=== PATIENT | female | born 1950 | race African-American/Black ===

== ENCOUNTER 2020-08-19 20:16 | Emergency (ER) | payer OTHER ==
[2020-08-19 22:37] LABS: HEMOGLOBIN 12.8 gm/dl (12.3-15.3); RED BLOOD COUNT 4.24 M/UL (4.00-5.10)
[2020-08-19 23:05] LABS: BUN/CREATININE RATIO 14 (0-10)
[2020-08-20] MEDS ORDERED: AZITHROMYCIN250 MG PO (04:42)
[2020-08-20] MEDS ORDERED: DECADRON6 MG PO (04:42)
[2020-08-20] MEDS ORDERED: AEROCHAMBER1 EA XX (04:45)
[2020-08-20] MEDS ORDERED: VENTOLIN HFA 66.7 GM INH (04:45)
== END 2020-08-20 05:01 | disposition home or self-care (01) ==
LOC: ER1 20:16
PROVIDERS: Family Medicine
DX: Z23 Encounter for immunization (principal); U07.1 COVID-19; E11.9 Type 2 diabetes mellitus without complications; E87.6 Hypokalemia; I10 Essential (primary) hypertension; Z79.84 Long term (current) use of oral hypoglycemic drugs; Z88.0 Allergy status to penicillin; Z88.2 Allergy status to sulfonamides
CPT/HCPCS: 36600; 71045; 80053; 81001; 82009; 82550; 82553; 82803; 83605; 83690; 83735; 83874; 83880; 84484; 85025; 85610; 93005; 96374; 96375; 99284; J1100; J1885; J2405; M0239

== ENCOUNTER → 2020-08-24 | Outpatient (CLI) | payer BC ==
[~2020-08-24] MED LIST: AEROCHAMBER1 EA XX; AZITHROMYCIN250 MG PO; DECADRON6 MG PO; PROVENTIL HFA6.7 GM INH; VENTOLIN HFA 66.7 GM INH
== END ==
LOC: KOH-I 12:11
DX: R05 Cough (principal)
CPT/HCPCS: 71046

== ENCOUNTER 2020-08-29 14:49 | Emergency (ER) | payer BC ==
[~2020-08-29 14:49] MED LIST changes: -PROVENTIL HFA6.7 GM INH
[2020-08-29 20:58] LABS: HEMOGLOBIN 11.3 gm/dl (12.3-15.3); RED BLOOD COUNT 3.76 M/UL (4.00-5.10); WHITE BLOOD COUNT 9.1 K/UL (4.5-11.0)
== END 2020-08-29 22:19 | disposition home or self-care (01) ==
LOC: ER1 14:49
PROVIDERS: Emergency Medicine
DX: U07.1 COVID-19 (principal); E11.9 Type 2 diabetes mellitus without complications; Z88.0 Allergy status to penicillin; Z88.2 Allergy status to sulfonamides
CPT/HCPCS: 36600; 71045; 80053; 82803; 85025; 96374; 96375; 99284; J1885; J2405

== ENCOUNTER 2020-09-13 16:04 | Emergency (ER) | payer BC ==
[2020-09-13 17:55] LABS: HEMOGLOBIN 13.5 gm/dl (12.3-15.3); RED BLOOD COUNT 4.37 M/UL (4.00-5.10); WHITE BLOOD COUNT 8.4 K/UL (4.5-11.0)
[2020-09-13 18:19] LABS: BUN/CREATININE RATIO 25 (0-10)
[2020-09-13] MEDS ORDERED: PROVENTIL HFA6.7 GM INH (20:27)
== END 2020-09-13 21:30 | disposition home or self-care (01) ==
LOC: ER1 16:04
PROVIDERS: Physician Assistant
DX: E11.65 Type 2 diabetes mellitus with hyperglycemia (principal); N17.9 Acute kidney failure, unspecified; E86.0 Dehydration; I10 Essential (primary) hypertension; Z90.710 Acquired absence of both cervix and uterus; Z88.0 Allergy status to penicillin; Z88.2 Allergy status to sulfonamides; Z88.1 Allergy status to other antibiotic agents
CPT/HCPCS: 71045; 80053; 81001; 82550; 82553; 82962; 83615; 83874; 84484; 85025; 85379; 86140; 87086; 93005; 99285

== ENCOUNTER → 2020-10-11 | Outpatient (CLI) | payer BC ==
[~2020-10-11] MED LIST changes: +PROVENTIL HFA6.7 GM INH
== END ==
LOC: KOH-I 15:54
DX: M54.5 Low back pain (principal); M51.36 Other intervertebral disc degeneration, lumbar region; M48.061 Spinal stenosis, lumbar region without neurogenic claudication; M43.17 Spondylolisthesis, lumbosacral region
CPT/HCPCS: 72110

== ENCOUNTER → 2020-10-12 | Outpatient (CLI) | payer BC | LOC: LAB 13:15 | PROVIDERS: Internal Medicine Nephrology | DX: N18.30 Chronic kidney disease, stage 3 unspecified (principal) | CPT/HCPCS: 36415; 80053; 82570; 84156 ==

== ENCOUNTER → 2020-12-15 | Outpatient (CLI) | payer BC, MEDICARE ==
[~2020-12-15] MED LIST changes: +ASPIRIN EC81 MG PO; +ATROVENT-HFA12.9 GM INH; +CARBAMAZEPINE200 M1 PO; +FARXIGA5 MG PO; +FERROUS GLUCON324 M2 PO; +HYDROCHLOROTHIA25 MG PO; +K-DUR TAB 10 M10 MEQ PO; +LASIX20 MG PO; +LASIX40 MG PO; +LOPRESSOR 25 MG25 MG PO; +LOSARTAN POTASS50 MG PO; +NEURONTIN400 MG PO; +PERCOCET 7.5-31 EACH PO; +POLYETHYLENE GL17 GM PO; +PRAVASTATIN SOD10 MG PO; +PROAIR DIGIHAL90 MCG INH; +RANEXA500 MG PO; +SUMATRIPTAN SUC50 MG PO; +THERAGRAN M TAB1 EA PO; +TRESIBA FL100 UNIT/1 SQ
== END ==
LOC: HEART 5 08:00
DX: R07.9 Chest pain, unspecified (principal)
CPT/HCPCS: 78452; A9502; J2785

== ENCOUNTER 2021-01-29 16:17 | Inpatient (IN) | payer BC, MEDICARE, MEDICAID ==
[~2021-01-29] VITALS: Ht 170.2 cm; Wt 89.0 kg
[~2021-01-29 16:17] MED LIST changes: -ASPIRIN EC81 MG PO; -ATROVENT-HFA12.9 GM INH; -CARBAMAZEPINE200 M1 PO; -FARXIGA5 MG PO; -FERROUS GLUCON324 M2 PO; -HYDROCHLOROTHIA25 MG PO; -K-DUR TAB 10 M10 MEQ PO; -LASIX20 MG PO; -LASIX40 MG PO; -LOPRESSOR 25 MG25 MG PO; -LOSARTAN POTASS50 MG PO; -NEURONTIN400 MG PO; -PERCOCET 7.5-31 EACH PO; -POLYETHYLENE GL17 GM PO; -PRAVASTATIN SOD10 MG PO; -PROAIR DIGIHAL90 MCG INH; -RANEXA500 MG PO; -SUMATRIPTAN SUC50 MG PO; -THERAGRAN M TAB1 EA PO; -TRESIBA FL100 UNIT/1 SQ
[2021-01-29 17:02] LABS: HEMOGLOBIN 12.7 gm/dl (12.3-15.3); RED BLOOD COUNT 4.14 M/UL (4.00-5.10); WHITE BLOOD COUNT 7.7 K/UL (4.5-11.0)
[2021-01-30] MEDS ORDERED: CARBAMAZEPINE200 M1 PO
[2021-01-30] MEDS ORDERED: K-DUR TAB 10 M10 MEQ PO (00:01)
[2021-01-30] MEDS ORDERED: NEURONTIN400 MG PO (00:01)
[2021-01-30] MEDS ORDERED: PRAVASTATIN SOD10 MG PO (00:01)
[2021-01-30] MEDS ORDERED: LOSARTAN POTASS50 MG PO (00:01)
[2021-01-30] MEDS ORDERED: LASIX20 MG PO (00:02)
[2021-01-30] MEDS ORDERED: LASIX40 MG PO (00:02)
[2021-01-30] MEDS ORDERED: FARXIGA5 MG PO (00:03)
[2021-01-30] MEDS ORDERED: ATROVENT-HFA12.9 GM INH (00:05)
[2021-01-30] MEDS ORDERED: SUMATRIPTAN SUC50 MG PO (00:05)
[2021-01-30] MEDS ORDERED: PROAIR DIGIHAL90 MCG INH (00:07)
[2021-01-30] MEDS ORDERED: TRESIBA FL100 UNIT/1 SQ (00:07)
[2021-01-30] MEDS ORDERED: HYDROCHLOROTHIA25 MG PO (00:07)
[2021-01-30 02:48] LABS: HEMOGLOBIN 11.6 gm/dl (12.3-15.3); RED BLOOD COUNT 3.82 M/UL (4.00-5.10); WHITE BLOOD COUNT 8.5 K/UL (4.5-11.0)
--- NOTE | 2021-01-30 13:32 | NUR ---
ENTERING ROOM FOR TO TAKE PATIENT FOR A TILT TABLE PROCEDURE. PATIENT STATES THAT SHE HAS PAIN IN THE RIGHT FOOT AND IS UNABLE TO BEAR WEIGHT AT THIS TIME FOR A TILT TABLE TEST. NOTIFIED. DR. BONILLA AND DOMONIQUE DALY, NEW ORDERS MADE PER CHART.
[2021-01-31 04:04] LABS: HEMOGLOBIN 10.4 gm/dl (12.3-15.3); RED BLOOD COUNT 3.46 M/UL (4.00-5.10); WHITE BLOOD COUNT 7.3 K/UL (4.5-11.0)
[2021-02-01 10:48] LABS: HEMOGLOBIN 9.9 gm/dl (12.3-15.3); RED BLOOD COUNT 3.29 M/UL (4.00-5.10); WHITE BLOOD COUNT 7.3 K/UL (4.5-11.0)
[2021-02-02 11:35] LABS: RED BLOOD COUNT 3.3 M/UL (4.00-5.10); WHITE BLOOD COUNT 7.2 K/UL (4.5-11.0)
[2021-02-03 03:43] LABS: HEMOGLOBIN 8.9 gm/dl (12.3-15.3); RED BLOOD COUNT 2.98 M/UL (4.00-5.10); WHITE BLOOD COUNT 8.1 K/UL (4.5-11.0)
[2021-02-04 09:48] LABS: HEMOGLOBIN 9.6 gm/dl (12.3-15.3); RED BLOOD COUNT 3.17 M/UL (4.00-5.10); WHITE BLOOD COUNT 8.7 K/UL (4.5-11.0)
[2021-02-05 09:48] LABS: HEMOGLOBIN 9.1 gm/dl (12.3-15.3); RED BLOOD COUNT 3.02 M/UL (4.00-5.10); WHITE BLOOD COUNT 7.2 K/UL (4.5-11.0)
[2021-02-06 05:52] LABS: RED BLOOD COUNT 2.99 M/UL (4.00-5.10); WHITE BLOOD COUNT 8.2 K/UL (4.5-11.0)
[2021-02-07 03:20] LABS: HEMOGLOBIN 9.1 gm/dl (12.3-15.3); RED BLOOD COUNT 3.08 M/UL (4.00-5.10); WHITE BLOOD COUNT 7.8 K/UL (4.5-11.0)
[2021-02-07] MEDS ORDERED: THERAGRAN M TAB1 EA PO (14:31)
[2021-02-07] MEDS ORDERED: ASPIRIN EC81 MG PO (14:31)
[2021-02-07] MEDS ORDERED: LOPRESSOR 25 MG25 MG PO (14:31)
[2021-02-07] MEDS ORDERED: PERCOCET 7.5-31 EACH PO (14:31)
[2021-02-07] MEDS ORDERED: POLYETHYLENE GL17 GM PO (14:31)
[2021-02-07] MEDS ORDERED: RANEXA500 MG PO (14:31)
[2021-02-07] MEDS ORDERED: FERROUS GLUCON324 M2 PO (14:57)
--- NOTE | 2021-02-07 15:26 | NUR ---
Report called to [facility] at this time.
--- NOTE | 2021-02-07 21:59 | NUR ---
PT WAS DISCHARGED AT 1920 AND TAKEN TO THE CAR BY WHEELCHAIR. THE PT'S FAMILY MEMBER CARRIED THE BEDSIDE COMMODE THAT PT BROUGHT TO TAKE HOME. LATER THAT EVENING THE PATIENT CALLED BACK AND SAID THAT THE BSC ONLY HAD 3 LEGS. I EXPLAINED THAT ALTHOUGH I DIDN'T COUNT THE LEGS, I DID SEE THE BSC SITTING AT THE END OF HER BED, SITTING UPRIGHT (I'M ASSUMING WITH 4 LEGS). SHE ASK THAT WE LOOK FOR THE LEG. I SEARCHED THE ROOM, THAT HADN'T BEEN CLEANED YET AND NO LEG WAS FOUND. I ALSO [facility]. SECURITY CAME BACK AND LET ME KNOW THEY HAD LOOKED AND DIDN'T SEE THE LEG TO THE BSC. I CALLED THE PATIENT AND LET HER KNOW.
== END 2021-02-07 19:20 | disposition home health service (06) | DRG 683 ==
LOC: ER1 16:17 → PROG CARE 18:10 → M/S 18:10 → CDU 18:10 → PROG CARE 01-30 12:14 → M/S 02-01 04:33
PROVIDERS: Family Medicine; Internal Medicine; ADMIT Internal Medicine
PROC: 2W3QX1Z Immobilization of Right Lower Leg using Splint (ICD-10-PCS; principal; 2021-01-29)
PROC: 0SSFXZZ Reposition Right Ankle Joint, External Approach (ICD-10-PCS; 2021-01-29)
PROC: B24BZZ4 Ultrasonography of Heart with Aorta, Transesophageal (ICD-10-PCS; 2021-01-30)
DX: N17.9 Acute kidney failure, unspecified (principal); J98.11 Atelectasis; E87.1 Hypo-osmolality and hyponatremia; Z20.822 Contact with and (suspected) exposure to COVID-19; N18.30 Chronic kidney disease, stage 3 unspecified; I12.9 Hypertensive chronic kidney disease with stage 1 through stage 4 chronic kidney disease, or unspecified chronic kidney disease; E11.22 Type 2 diabetes mellitus with diabetic chronic kidney disease; E87.6 Hypokalemia; E86.0 Dehydration; W18.39XA Other fall on same level, initial encounter; S82.851A Displaced trimalleolar fracture of right lower leg, initial encounter for closed fracture; J44.9 Chronic obstructive pulmonary disease, unspecified; G50.0 Trigeminal neuralgia; G44.89 Other headache syndrome; E78.5 Hyperlipidemia, unspecified; I34.0 Nonrheumatic mitral (valve) insufficiency; Y92.009 Unspecified place in unspecified non-institutional (private) residence as the place of occurrence of the external cause; Z79.01 Long term (current) use of anticoagulants; Z79.82 Long term (current) use of aspirin; Z88.1 Allergy status to other antibiotic agents; Z88.2 Allergy status to sulfonamides; Z90.710 Acquired absence of both cervix and uterus; Z98.42 Cataract extraction status, left eye; Z98.41 Cataract extraction status, right eye; Z90.10 Acquired absence of unspecified breast and nipple; Z82.49 Family history of ischemic heart disease and other diseases of the circulatory system
CPT/HCPCS: ECHO; 36415; 70450; 71045; 72170; 73590; 73600; 73610; 73620; 73700; 80048; 80053; 80061; 81001; 82009; 82550; 82553; 82570; 82962; 83036; 83540; 83550; 83605; 83735; 83874; 83880; 84100; 84156; 84439; 84443; 84484; 85025; 85027; 85610; 86140; 87040; 87086; 93005; 93306; 93880; 94640; 94760; 96374; 96375; 97110-GP-CQ; 97116; 97161; 97166; 97530; 97530-GP-CQ; 97535; 99285; G0378; J1650; J1956; J2270; J2405; J2704; J7030; U0002

== ENCOUNTER → 2021-02-14 | Outpatient (CLI) | payer BC, MEDICARE ==
[~2021-02-14] MED LIST changes: +ASPIRIN EC81 MG PO; +ATROVENT-HFA12.9 GM INH; +CARBAMAZEPINE200 M1 PO; +FARXIGA5 MG PO; +FERROUS GLUCON324 M2 PO; +HYDROCHLOROTHIA25 MG PO; +K-DUR TAB 10 M10 MEQ PO; +LASIX20 MG PO; +LASIX40 MG PO; +LOPRESSOR 25 MG25 MG PO; +LOSARTAN POTASS50 MG PO; +NEURONTIN400 MG PO; +PERCOCET 7.5-31 EACH PO; +POLYETHYLENE GL17 GM PO; +PRAVASTATIN SOD10 MG PO; +PROAIR DIGIHAL90 MCG INH; +RANEXA500 MG PO; +SUMATRIPTAN SUC50 MG PO; +THERAGRAN M TAB1 EA PO; +TRESIBA FL100 UNIT/1 SQ
[2021-02-14 11:33] LABS: HEMOGLOBIN 10.9 gm/dl (12.3-15.3); RED BLOOD COUNT 3.63 M/UL (4.00-5.10); WHITE BLOOD COUNT 7.5 K/UL (4.5-11.0)
== END ==
LOC: OPSV2 09:00
PROVIDERS: Anesthesiology
DX: Z01.818 Encounter for other preprocedural examination (principal); S82.891A Other fracture of right lower leg, initial encounter for closed fracture; R94.31 Abnormal electrocardiogram [ECG] [EKG]
CPT/HCPCS: 36415; 80048; 85025; 93005

== ENCOUNTER → 2021-02-17 | Day surgery (SDC) | payer BC, MEDICARE | END | disposition home or self-care (01) | LOC: OR 05:42 | DX: S82.841A Displaced bimalleolar fracture of right lower leg, initial encounter for closed fracture (principal); S93.431A Sprain of tibiofibular ligament of right ankle, initial encounter; I10 Essential (primary) hypertension; E78.5 Hyperlipidemia, unspecified; J44.9 Chronic obstructive pulmonary disease, unspecified; E11.9 Type 2 diabetes mellitus without complications; Z87.891 Personal history of nicotine dependence; Z88.0 Allergy status to penicillin; Z88.2 Allergy status to sulfonamides; Z79.82 Long term (current) use of aspirin; Z79.4 Long term (current) use of insulin; Z20.822 Contact with and (suspected) exposure to COVID-19; W19.XXXA Unspecified fall, initial encounter | CPT/HCPCS: 73610; 76000; 82962; C1713; J1100; J1170; J2250; J2405; J2550; J2704; J2795; J3010; J7030; J7120 ==

== ENCOUNTER 2021-03-04 17:30 | Emergency (ER) | payer BC, MEDICARE ==
[2021-03-04] MEDS ORDERED: LODINE CAP 300300 MG PO (21:20)
== END 2021-03-04 21:35 | disposition home or self-care (01) ==
LOC: ER1 17:30
DX: S09.90XA Unspecified injury of head, initial encounter (principal); S33.5XXA Sprain of ligaments of lumbar spine, initial encounter; S80.02XA Contusion of left knee, initial encounter; S70.02XA Contusion of left hip, initial encounter; E11.9 Type 2 diabetes mellitus without complications; I25.2 Old myocardial infarction; I11.9 Hypertensive heart disease without heart failure; W01.0XXA Fall on same level from slipping, tripping and stumbling without subsequent striking against object, initial encounter; Y92.009 Unspecified place in unspecified non-institutional (private) residence as the place of occurrence of the external cause
CPT/HCPCS: 70450; 72131; 73502; 73564; 99284

== ENCOUNTER 2021-04-12 07:01 | Outpatient (CLI) | payer BC, MEDICARE ==
[~2021-04-12] VITALS: Ht 170.2 cm; Wt 74.8 kg
[~2021-04-12 07:01] MED LIST changes: +LODINE CAP 300300 MG PO
[2021-04-12 07:58] LABS: HEMOGLOBIN 11.8 gm/dl (12.3-15.3); RED BLOOD COUNT 4.09 M/UL (4.00-5.10); WHITE BLOOD COUNT 8.6 K/UL (4.5-11.0)
[2021-04-12] MEDS ORDERED: FARXIGA5 MG PO (08:07)
[2021-04-12] MEDS ORDERED: VITAMIN D21250 MCG PO (08:07)
[2021-04-12] MEDS ORDERED: ZOFRAN4 MG PO (08:09)
[2021-04-12] MEDS ORDERED: ALBUTEROL1.25 MG/3 INH (08:21)
[2021-04-13 02:54] LABS: HEMOGLOBIN 11.3 gm/dl (12.3-15.3); RED BLOOD COUNT 3.84 M/UL (4.00-5.10); WHITE BLOOD COUNT 6.8 K/UL (4.5-11.0)
[2021-04-13] MEDS ORDERED: CLOPIDOGREL75 MG PO (08:10)
== END 2021-04-13 10:02 | disposition home or self-care (01) ==
LOC: CATH 07:01 → PROG CARE 12:47 → CATH 04-13 10:02
PROVIDERS: Internal Medicine Cardiovascular Disease
DX: Z01.818 Encounter for other preprocedural examination (principal); I25.118 Atherosclerotic heart disease of native coronary artery with other forms of angina pectoris; Z20.822 Contact with and (suspected) exposure to COVID-19; I12.9 Hypertensive chronic kidney disease with stage 1 through stage 4 chronic kidney disease, or unspecified chronic kidney disease; E11.22 Type 2 diabetes mellitus with diabetic chronic kidney disease; N18.9 Chronic kidney disease, unspecified; R55 Syncope and collapse; S82.891A Other fracture of right lower leg, initial encounter for closed fracture; E11.42 Type 2 diabetes mellitus with diabetic polyneuropathy; E78.5 Hyperlipidemia, unspecified; I87.2 Venous insufficiency (chronic) (peripheral); I37.1 Nonrheumatic pulmonary valve insufficiency; G50.0 Trigeminal neuralgia; E66.9 Obesity, unspecified; Z79.82 Long term (current) use of aspirin; Z79.4 Long term (current) use of insulin; Z86.16 Personal history of COVID-19; Z90.710 Acquired absence of both cervix and uterus; Z88.2 Allergy status to sulfonamides; Z88.1 Allergy status to other antibiotic agents; Z87.891 Personal history of nicotine dependence
CPT/HCPCS: 36415; 80048; 85025; 85027; 85347; 93005; 94640; 94664; 94760; 99152; 99153; C1725; C1769; C1874; C1887; C1894; C9600; J1644; J2250; J3010; J3246; J7030; Q9965; U0002

== ENCOUNTER 2021-04-14 16:45 | Emergency (ER) | payer BC, MEDICARE | END 2021-04-14 17:36 | disposition home or self-care (01) | LOC: ER1 16:45 | DX: S69.92XA Unspecified injury of left wrist, hand and finger(s), initial encounter (principal); I11.9 Hypertensive heart disease without heart failure; E11.9 Type 2 diabetes mellitus without complications; E78.5 Hyperlipidemia, unspecified; Z88.0 Allergy status to penicillin; W19.XXXA Unspecified fall, initial encounter | CPT/HCPCS: 99283; J1100 ==

== ENCOUNTER → 2021-04-14 | Outpatient (CLI) | payer BC, MEDICARE ==
[~2021-04-14] MED LIST changes: +ALBUTEROL1.25 MG/3 INH; +CLOPIDOGREL75 MG PO; +VITAMIN D21250 MCG PO; +ZOFRAN4 MG PO
== END ==
LOC: KOH-I 15:36
DX: M79.602 Pain in left arm (principal); M19.032 Primary osteoarthritis, left wrist
CPT/HCPCS: 73090; 73110

== ENCOUNTER → 2021-05-01 | Outpatient (CLI) | payer BC, MEDICARE ==
[2021-05-02 07:10] LABS: A/G RATIO 1.8 (1.2-2.2); ALKALINE PHOSPHATASE, S 140 IU/L (44-121); ALT (SGPT) 16 IU/L (0-32); AST (SGOT) 14 IU/L (0-40); BILIRUBIN, TOTAL <0.2 mg/dL (0.0-1.2); BUN 19 mg/dL (8-27); BUN/CREATININE RATIO 14 (12-28); CALCIUM, SERUM 9.7 mg/dL (8.7-10.3); CARBON DIOXIDE, TOTAL 23 mmol/L (20-29); CHLORIDE, SERUM 101 mmol/L (96-106); CREATININE, SERUM 1.32 mg/dL (0.57-1.00); EGFR IF AFRICN AM 47 (>59); EGFR IF NONAFRICN AM 41 (>59); GLOBULIN, TOTAL 2.3 g/dL (1.5-4.5); GLUCOSE, SERUM 157 mg/dL (65-99); POTASSIUM, SERUM 4.5 mmol/L (3.5-5.2); PROTEIN, TOTAL, SERUM 6.5 g/dL (6.0-8.5); SODIUM, SERUM 138 mmol/L (134-144)
== END ==
LOC: LAB 13:04
PROVIDERS: Internal Medicine Nephrology
DX: N18.30 Chronic kidney disease, stage 3 unspecified (principal)
CPT/HCPCS: 80053; 82570; 84156

== ENCOUNTER 2021-06-04 11:50 | Emergency (ER) | payer BC, MEDICARE ==
[2021-06-04] MEDS ORDERED: CYCLOBENZAPRINE10 MG PO (13:00)
== END 2021-06-04 13:05 | disposition home or self-care (01) ==
LOC: ER1 11:50
DX: S93.401A Sprain of unspecified ligament of right ankle, initial encounter (principal); Z88.0 Allergy status to penicillin; Z88.2 Allergy status to sulfonamides; I11.9 Hypertensive heart disease without heart failure; E78.5 Hyperlipidemia, unspecified; E11.9 Type 2 diabetes mellitus without complications; J44.9 Chronic obstructive pulmonary disease, unspecified; W01.0XXA Fall on same level from slipping, tripping and stumbling without subsequent striking against object, initial encounter
CPT/HCPCS: 73610; 73630; 99283

== ENCOUNTER → 2021-06-26 | Outpatient (CLI) | payer BC, MEDICARE ==
[~2021-06-26] MED LIST changes: +CYCLOBENZAPRINE10 MG PO
== END ==
LOC: EXRD 11:00
DX: I87.2 Venous insufficiency (chronic) (peripheral) (principal); R60.0 Localized edema
CPT/HCPCS: 93970

== ENCOUNTER → 2021-12-19 | Outpatient (CLI) | payer MEDICARE | LOC: KOH-I 09:30 | DX: J01.81 Other acute recurrent sinusitis (principal) | CPT/HCPCS: 70486 ==

== ENCOUNTER → 2021-12-27 | Outpatient (CLI) | payer MEDICARE | LOC: US 11-29 13:30 → KOH-I 13:30 → US 13:30 | PROVIDERS: Internal Medicine Nephrology | DX: N28.1 Cyst of kidney, acquired (principal); N18.31 Chronic kidney disease, stage 3a | CPT/HCPCS: 36415; 80053; 82570; 84156 ==

== ENCOUNTER → 2022-02-09 | Outpatient (CLI) | payer MEDICARE | LOC: LAB 14:59 | PROVIDERS: Internal Medicine Nephrology | DX: N18.31 Chronic kidney disease, stage 3a (principal) | CPT/HCPCS: 36415; 80048 ==